=== PATIENT | female | born 1950 | race Caucasian/White ===

== ENCOUNTER → 2017-08-15 | Outpatient (CLI) | payer MEDICARE, OTHER | END | disposition home or self-care (01) | LOC: KCIC MRI 11:24 | DX: M48.061 Spinal stenosis, lumbar region without neurogenic claudication (principal); M47.895 Other spondylosis, thoracolumbar region; M51.24 Other intervertebral disc displacement, thoracic region; M25.48 Effusion, other site | CPT/HCPCS: 72146; 72148 ==